=== PATIENT | male | born 1960 | race Caucasian/White ===

== ENCOUNTER 2017-04-11 00:32 | Inpatient (IN) | payer OTHER ==
[~2017-04-11] VITALS: Ht 180.3 cm; Wt 135.2 kg
[2017-04-11] VITALS (10 sets, daily range): BP systolic 131–170; BP diastolic 71–104
[2017-04-11 01:04] LABS: ABSOLUTE EOSINOPHILS 0.2 thou/uL (0.0-0.7); ABSOLUTE LYMPHOCYTES 1.5 thou/uL (0.8-5.3); ABSOLUTE MONOCYTES 0.4 thou/uL (0.0-1.2); BASOPHILS 0.5 %; EOSINOPHILS 1.9 %; HEMATOCRIT 45.2 % (42.0-52.0); HEMOGLOBIN 15.9 gm/dL (14.0-18.0); LYMPHOCYTES 18.6 %; MCH 32.6 pg (26.0-34.0); MCHC 35.2 g/dL (28.0-37.0); MCV 92.4 fL (80.0-100.0); MONOCYTES 5.5 %; NUCLEATED RBCS 0 /100WBC; PLATELET COUNT* 198 thou/uL (150-400); POLYS 73.5 %; RBC 4.89 mil/uL (4.50-6.00); RDW-CV 13.1 % (10.5-14.5); WBC 8.1 thou/uL (4.0-11.0)
[2017-04-11 01:16] LABS: ANION GAP 8 mmol/L (7-16); BUN 20 mg/dL (7-18); CALCIUM 9.1 mg/dL (8.5-10.1); CHLORIDE 102 mmol/L (98-107); CO2 29 mmol/L (21-32); GLUCOSE 126 mg/dL (70-99); POTASSIUM 4.1 mmol/L (3.5-5.1); SODIUM 139 mmol/L (136-145)
[2017-04-11 01:27] LABS: ALBUMIN 3.9 g/dL (3.4-5.0); ALKALINE PHOSPHATASE 106 U/L (46-116); NT-PRO BRAIN NAT PEPTIDE 14 pg/mL (<300); SGOT 18 U/L (15-37); SGPT 29 U/L (30-65); TOTAL BILIRUBIN 0.6 mg/dL (<0.1-1.0); TOTAL PROTEIN 7.5 g/dL (6.4-8.2); TROPONIN-I LEVEL <0.06 ng/mL (<0.06)
[2017-04-11 02:03] LABS: URINE BILIRUBIN NEGATIVE (Negative); URINE BLOOD NEGATIVE (Negative); URINE CLARITY CLEAR; URINE COLOR YELLOW; URINE GLUCOSE-RANDOM NEGATIVE (Negative); URINE KETONES NEGATIVE (Negative); URINE LEUKOCYTES-REFLEX NEGATIVE (Negative); URINE NITRITE-REFLEX NEGATIVE (Negative); URINE PROTEIN NEGATIVE (Negative); URINE UROBILINOGEN 0.2 E.U./dl (0.2-1.0)
--- NOTE | 2017-04-11 07:41 | NUR ---
A&O X4 CALM COOPERITVE, PT TO FLOOR 0351 AND ASSUMED CARE. VITALS WNL. PT DENIES AND NUMBNESS ON LEFT SIDE. PT ON 2L O2. FLUIDS GOING IN RIGHT AC. PT ADLIB. SR ON THE MONITOR. HOURLY ROUNDING FOR SAFETY.
[2017-04-11 07:47] LABS: HEMATOCRIT 46.6 % (42.0-52.0); HEMOGLOBIN 16.1 gm/dL (14.0-18.0); MCH 31.9 pg (26.0-34.0); MCHC 34.4 g/dL (28.0-37.0); MCV 92.6 fL (80.0-100.0); MPV 8.2 fl. (7.2-11.1); RBC 5.04 mil/uL (4.50-6.00); RDW-CV 13.1 % (10.5-14.5); WBC 7.7 thou/uL (4.0-11.0)
[2017-04-11 08:03] LABS: CALCIUM 9.1 mg/dL (8.5-10.1); POTASSIUM 3.9 mmol/L (3.5-5.1); TOTAL BILIRUBIN 0.6 mg/dL (<0.1-1.0); TOTAL PROTEIN 7.3 g/dL (6.4-8.2)
--- NOTE | 2017-04-11 10:22 | EKG ---
[place] [address] ELECTROCARDIOGRAM REPORT Name: YANELIS VALERIO Room: [address] ADM IN R.#: [id number] Admission: 04/11/17 Attend Phys: Tommy Rodriguez MD Discharge: Date of : 58 Report #: [id number] THIS REPORT FOR: //name// [facility] ED Test Date: 2017-04-11 Test Time: 00:36:22 Pat Name: YANELIS VALERIO Department: Room: [facility] Gender: M Motel Maid: : 1960 Requested By: Lisa Metzger Order Number: [id number] MD: Raffaele Walter Measurements Intervals [place] Rate: 79 P: 36 NC: 187 QRS: -25 QRSD: 99 T: 39 QT: 366 QTc: 420 Interpretive Statements Sinus rhythm Probable left atrial enlargement Borderline left axis deviation RSR' in V1 or V2, right VCD or RVH Nonspecific T abnormalities, lateral leads Baseline wander in lead(s) V1,V6 No previous ECG available for comparison Electronically Signed On 04-11-2017 10:21:45 COOKING SHOW HOST by Raffaele Walter [email or web address] <ELECTRONICALLY SIGNED> By: Raffaele Walter MD, FAC 04/11/17 1021 0036 0036 Raffaele Walter MD, [facility] /EPI
--- NOTE | 2017-04-11 13:59 | NUR ---
ASSUMED CARE OF PT AT 0730. PT RESTING IN BED WAITING FOR BREAKFAST. PT A&0X4. DENIES ANY PAIN OR SHORTNESS OF BREATH. PT DENIES ANY WEAKNESS BUT COMPLAINS OF NUMBNESS/TINGLING TO LEFT FOREARM. NEURO CHECK COMPLETED. REFER TO CHARTING. NEURO CONSULT IN PLACE. AWAITING NEURO AT THIS TIME. PT TO HAVE ECHO AND US CAROTIDS TODAY. PT TRACING SR ON THE ANIMAL ASSISTED THERAPIST. ON RA SAT 93%. IVF. PT UP AD PAULINO IN ROOM. PT BLOOD GLUCOSE ELEVATED WITH MORNING LAB DRAW. ORDERS RECEIVED FOR HGB A1C AND LIPID PROFILE. AM ASSESSMENT CHARTED. MEDICATIONS PER MAY. PT REPOSITIONS SELF IN BED WITH REMINDERS. HOURLY ROUNDING OBSERVED. BED IN LOW POSITION. CALL LIGHT WITHIN REACH. WILL CONTINUE PLAN OF CARE.
--- NOTE | 2017-04-11 14:08 | 2DMMODE ---
[place] [address] 2 D/M-MODE ECHOCARDIOGRAM Name: YANELIS VALERIO Room: [address] IN [facility]#: [id number] Admission: 04/11/17 Attend Phys: Tommy Rodriguez, Discharge: Date of : 58 Date of Service: 04/11/17 1408 Report #: [id number] THIS REPORT FOR: //name// APPROVED REPORT Study performed: 04/11/2017 10:00:37 EXAM: Comprehensive 2D, Doppler, and color-flow Echocardiogram Patient Location: In-Patient Room #: 201 Status: routine BSA: 2.48 HR: 95 bpm BP: 153/89 mmHg Rhythm: NSR Other Information Study Quality: Adequate Indications CVA/TIA parasthesia, numbness left side Echo Enhancing Agent Indication: Rule out Shunt Agent(s) / Amount(s) Used: Agitated Saline 10 cc 2D Dimensions LVEF(%): 77.53 (>50%) IVSd: 12.34 (7-11mm) LVOT Diam: 22.90 (18-24mm) LVDd: 46.50 mm PWd: 10.53 (7-11mm) Ascending Ao: 36.15 (22-36mm) LVDs: 25.05 (25-40mm) Aortic Root: 34.82 mm Hernandez's LVEF: 77.53 % Volumes Left Atrial Volume (Systole) LA ESV Index: 23.80 mL/m2 Aortic Valve AoV Peak Andi.: 1.63 m/s AO Peak Gr.: 10.57 mmHg LVOT Max P.16 mmHg AO Mean Gr.: 6.18 mmHg LVOT Mean P.50 mmHg LVOT Max V: 1.51 m/[place] [address] 2 D/M-MODE ECHOCARDIOGRAM Name: YANELIS VALERIO Room: [address] IN .R.#: [id number] Admission: 04/11/17 Attend Phys: Tommy Rodriguez, Discharge: Date of : 58 Date of Service: 04/11/17 1408 Report #: [id number] AO V2 VTI: 29.09 cm LVOT Mean V: 0.98 m/s COLIN (VTI): 3.86 cm2 LVOT V1 VTI: 27.26 cm Mitral Valve E/A Ratio: 0.62 MV Decel. Time: 74.59 ms MV E Max Andi.: 0.79 m/s MV PHT: 21.63 ms MVA (PHT): 10.17 cm2 TDI E/Lateral E': 6.08 E/Medial E': 7.90 Medial E' Andi.: 0.10 m/s Lateral E' Andi.: 0.13 m/s Pulmonary Valve PV Peak Andi.: 1.27 m/s PV Peak Gr.: 6.43 mmHg Left Ventricle The left ventricle is normal size. There is normal LV segmental wall motion. There is normal left ventricular wall thickness. Left ventricular systolic function is normal. The left ventricular ejection fraction is within the normal range. LVEF is 65-70%. Grade I - abnormal relaxation pattern. Right Ventricle The right ventricle is normal size. The right ventricular systolic function is normal. Atria The left atrium size is normal. Interatrial septum is intact without evidence of ASD or PFO. The right atrium size is normal. Aortic Valve The aortic valve is normal in structure. No aortic regurgitation is present. There is no aortic valvular stenosis. Mitral Valve The mitral valve is normal in structure. There is no mitral valve regurgitation noted. No evidence of mitral valve stenosis. Tricuspid Valve The tricuspid valve is normal in structure. Unable to assess PA pressure. Trace tricuspid regurgitation. [place] [address] 2 D/M-MODE ECHOCARDIOGRAM Name: YANELIS VALERIO Room: [address] IN M.R.#: [id number] Admission: 04/11/17 Attend Phys: Tommy Rodriguez, Discharge: Date of : 58 Date of Service: 04/11/17 1408 Report #: [id number] The pulmonary valve is normal in structure. There is no pulmonic valvular regurgitation. Great Vessels The aortic root is normal in size. IVC is normal in size and collapses with >50% inspiration Pericardium There is no pericardial effusion. <Conclusion> Left ventricular systolic function is normal. The left ventricular ejection fraction is within the normal range. <ELECTRONICALLY SIGNED> By: Raffaele Walter MD, FACC 04/11/17 1408 1408 1408 Raffaele Walter MD, FACC /INF
--- NOTE | 2017-04-11 17:47 | NUR ---
NO ACUTE CHANGES THROUGHOUT SHIFT. REFER TO CHARTING. PT CONTINUES TO HAVE INTERMITTENT NUMBNESS/TINGLING TO LEFT FOREARM. NEURO HERE TO SEE PT. ORDERS RECEIVED FOR MRI HEAD AND MRI CERVICAL SPINE. MRI QUESTIONAIRE FILLED OUT AND PLACED IN FRONT OF CHART. PT TO HAVE MRI THIS EVENING. PT HAD ECHO TODAY. RESULTS BACK AT 65-70%. 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 PT AT BEDSIDE THROUGHOUT SHIFT. POSSIBLE DISCHARGE HOME TOMORROW PENDING RESULTS. PT CONTINUES TO TRACE SR ON THE AUTO GLASS TECHNICIAN. ON RA SAT UPPER 90'S. PT COMPLAINED OF HEADACHE THIS AFTERNOON. TREATED WITH PRN TYLENOL WITH COMPLETE RELIEF. IVF. PT UP AD PAULINO IN ROOM. NEURO CHECKS COMPLETED Q4H. REFER TO CHARTING. MEDICATIONS PER MAY. PT REPOSITIONS SELF. HOURLY ROUNDING OBSERVED. BED IN LOW POSITION. CALL LIGHT WITHIN REACH. WILL CONTINUE PLAN OF CARE.
[2017-04-12] VITALS: BP 146/82
[2017-04-12 00:31] VITALS: BP 143/72
[2017-04-12 03:17] LABS: GLYCOHEMOGLOBIN (HGB A1C) 5.2 % (4.8-5.6)
[2017-04-12 04:00] VITALS: BP 137/81
[2017-04-12 04:29] VITALS: BP 137/81
--- NOTE | 2017-04-12 05:26 | NUR ---
PT CARE ASSUMED AFTER REPORT. ASSESSMENT COMPLETE. SR ON MONITOR. IVF INFUSING. UP AD PAULINO WITH STEADY GAIT. CALL LIGHT IN REACH. BED IN LOWEST POSITION. DENIES PAIN, NUMBNESS, TINGLING. PROGRESSING TOWARDS GOALS.
[2017-04-12 07:22] LABS: CHOLESTEROL 201 mg/dL (<200); HDL CHOLESTEROL 48 mg/dL (>40); LDL CHOLESTEROL 119 mg/dL (<100); SERUM ASSESSMENT Clear; TC:HDL 4.2 Ratio (Not establshd); TRIGLYCERIDE 171 mg/dL (<150); VLDL 34 mg/dL (<40)
[2017-04-12 08:00] VITALS: BP 142/88
--- NOTE | 2017-04-12 12:27 | NUR ---
ASSUMED PT CARE AT 0700 PT IS ALERT AND ORIENTED X 4 PT DENIES PAIN OR SOA, PT IS UP AD PAULINO PT IS NOT A FALL RISK PT WILL DISCHARGE TODAY, PT IS SR ON THE MONITOR, IV REMOVED WILL CONTINUE TO MONITOR
[2017-04-12] MEDS ORDERED: JANUVIA100 MG PO (12:34)
[2017-04-12] MEDS ORDERED: MAXZIDE-25 MG1 EACH PO (12:35)
[2017-04-12] MEDS ORDERED: ASPIRIN325 PO (12:35)
[2017-04-12] MEDS ORDERED: LIPITOR 20 MG T20 M1 PO (12:36)
[2017-04-12 12:37] VITALS: BP 142/88
--- NOTE | 2017-04-16 19:06 | CON ---
[address] [address] CONSULTATION Name: YANELIS VALERIO Room: [address] IN .R.#: [id number] Admission: 04/11/17 Attend Phys: Tommy Rodriguez MD Discharge: 04/12/17 Date of : 58 Report #: [id number] THIS REPORT FOR: //name// CC: Tommy Tillman [facility] DATE OF SERVICE: 04/11/2017 HISTORY OF PRESENT ILLNESS: This is a 57-year-old male patient who was evaluated by me for an episode of numbness on the left side. It was predominantly in the left arm, but was also present on the left side of the face. There was no focal motor deficit. It came spontaneously without any trauma. He did not know what brought it on. He underwent an evaluation in the Emergency Room. He had a normal CT angio of the head and neck. His echocardiogram is pending. He did have [id number] cervical spine problems on the CT scan of the head. He never had this kind of symptom before. REVIEW OF SYSTEMS: Indicate that he has lost about 50 pounds by doing exercise. He is still overweight. He is not a known diabetic. He was taking aspirin, but only intermittently, not on a regular basis. His 14-point review of system is carried out and otherwise looks noncontributory. PAST MEDICAL HISTORY: Negative for any episode of TIA or a stroke. FAMILY HISTORY: Negative for early age stroke. SOCIAL HISTORY: He does not smoke or drink any alcohol. PHYSICAL EXAMINATION: Indicate he is alert, responsive, able to follow simple commands. His speech, concentration, fund of knowledge and memory is at his baseline. Cranial nerve examination 2-12 is unremarkable. The patient has symmetrical strength, sensation, reflexes and tone in all 4 extremities. There is no papilledema. There is no carotid bruit. This patient is well developed, obese individual whose hearing and vision is adequate. Sensation objectively looks unremarkable. Cardiac examination shows no atrial fibrillation or respiratory difficulty. His blood pressure is 163/87. His respirations 16, pulse is 96, temperature is 98.1. LABORATORY DATA: Indicate a normal white count. His blood sugar is trace high at 177. I reviewed his extensive workup and is basically unremarkable. IMPRESSION: Transient ischemic attack versus cervical spine problems. RECOMMENDATIONS: 1. MRI of the brain and C-spine. 2. If MRI of the brain and C-spine is concern, from neurological perspective, [place] [address] CONSULTATION Name: YANELIS VALERIO Rosenda Room: [address]#: [id number] Admission: 04/11/17 Attend Phys: Tommy Rodriguez MD Discharge: 04/12/17 Date of : 58 Report #: [id number] he can be dismissed on one aspirin daily. 3. He needs the evaluation and management of his vascular risk factors including any dyslipidemia and that can be done as an outpatient by his primary care doctor. 4. He wants to go home and I asked him to talk to his admitting doctor because he is the one who has to decide that. 5. I will check his MRI, but I do not think neurologically anything needs to be done, but he can follow up with me as an outpatient and I can arrange an EMG as an outpatient. Thank you very much for this referral and we will follow him as necessary. As mentioned above from neurological perspective, he can be dismissed when he is considered okay to be dismissed from other perspective and if his MRI of the brain and C-spine come out to be okay. <ELECTRONICALLY SIGNED> By: Kelvin Rascon MD 04/16/17 1906 1427 0116Kelvin Rascon MD /nt
--- NOTE | 2017-04-16 19:06 | CON ---
[address] [address] CONSULTATION Name: YANELIS VALERIO Room: [address] IN M.R.#: [id number] Admission: 04/11/17 Attend Phys: Tommy Rodriguez MD Discharge: 04/12/17 Date of : 58 Report #: [id number] THIS REPORT FOR: //name// CC: Tommy Tillman [facility] DATE OF SERVICE: 04/12/2017 HISTORY OF PRESENT ILLNESS: This is a 57-year-old male patient who was seen by me earlier today. This patient had an episode of numbness in the left arm. He had no more symptoms. Those symptoms have resolved and he really does not have any more symptoms. I examined him and his examination is pretty much back to the baseline. His MRI of the brain and C-spine were reviewed by him. I discussed with him that it is not possible to tell whether his symptoms are coming from the neck or whether he had a TIA. In any event, he has multiple vascular risk factors. He has diabetes and hypertension and obesity, need to be controlled. He has dyslipidemia and he needs to be on statin for that. He understood all those. I also talked to him that no spine surgeon comes here and he should follow up with the spine surgeon as an outpatient. All of it was discussed with the patient in detail. I will give him a followup call to remind him that he does need to be on statin and aspirin because of his vascular risk factor and dyslipidemia. <ELECTRONICALLY SIGNED> By: Kelvin Rascon MD 04/16/17 1906 1752 0405Kelvin Rascon MD /nt
== END 2017-04-12 13:02 | disposition home or self-care (01) | DRG 552 ==
LOC: M.ERS 00:32 → M.2W 02:52 → M.TBA-ER 02:52 → M.2W 03:51
PROVIDERS: Emergency Medicine; Family Medicine; ADMIT Internal Medicine
DX: M50.323 Other cervical disc degeneration at C6-C7 level (principal); G45.9 Transient cerebral ischemic attack, unspecified; Z68.41 Body mass index [BMI] 40.0-44.9, adult; R20.2 Paresthesia of skin; E66.01 Morbid (severe) obesity due to excess calories; I10 Essential (primary) hypertension; R73.9 Hyperglycemia, unspecified; M25.70 Osteophyte, unspecified joint; E78.5 Hyperlipidemia, unspecified; Z79.82 Long term (current) use of aspirin; Z82.49 Family history of ischemic heart disease and other diseases of the circulatory system; Z81.8 Family history of other mental and behavioral disorders